=== PATIENT | male | born 1955 | race Caucasian/White ===

== ENCOUNTER 2019-12-28 22:49 | Outpatient (REF) | payer BC, SELFPAY ==
[2020-01-01 00:05] LABS: Patient Race White; SARS-CoV-2 RNA Undetected (Undetected); SARS-CoV-2 Specimen Source Nasal
== END 2019-12-28 23:09 ==
LOC: LBN 22:49
PROVIDERS: PCP Family Medicine; Visit Provider Nurse Practitioner Family
DX: Z20.828 Contact with and (suspected) exposure to other viral communicable diseases (principal)
CPT/HCPCS: U0003

== ENCOUNTER 2020-02-24 10:19 | Outpatient (REF) | payer BC, SELFPAY | END 2020-02-24 10:39 | LOC: NCHCN 10:19 | PROVIDERS: PCP Family Medicine; Visit Provider Internal Medicine | DX: R30.0 Dysuria (principal) | CPT/HCPCS: 87086 ==

== ENCOUNTER 2021-06-11 14:47 | Outpatient (REF) | payer BC, SELFPAY ==
[2021-06-11 16:57] LABS: COMMENT (LAB VIEW ONLY) 37.23 mg/dL; Microalb ug/mg Crea 61.5 ug/mg Cr
[2021-06-11 17:01] LABS: PROTEIN < 6.0 mg/dL (0.0-11.9)
[2021-06-11 17:09] LABS: Hemoglobin A1C 5.9 % (<5.7)
[2021-06-11 18:01] LABS: ALT 23 U/L (16-63); AST 24 U/L (15-37); Albumin 3.8 g/dL (3.4-5.0); Alkaline Phosphatase 78 U/L (46-116); Anion Gap 10.1 mmol/L (3-11); BUN 17 mg/dL (7-18); Bilirubin, Total 0.4 mg/dL (0.2-1.0); CO2 25.9 mmol/L (21.0-32.0); Calcium 9.2 mg/dL (8.5-10.1); Calculated LDL 126 mg/dL (<100); Chloride 103 mmol/L (98-107); Cholesterol 214 mg/dL (<200); Glucose 91 mg/dL (74-106); HDL Cholesterol 43 mg/dL (40-60); Potassium 4.5 mmol/L (3.5-5.1); Sodium 139 mmol/L (136-145); Total Protein 7.4 g/dL (6.4-8.2); Triglyceride 228 mg/dL (<150)
[2021-06-11 18:22] LABS: TSH (W/Ref FT4) 1.56 uIU/mL (0.36-3.74)
== END 2021-06-11 14:48 | disposition home or self-care (01) ==
LOC: NCHCN 14:47
PROVIDERS: PCP Family Medicine; Visit Provider Nurse Practitioner Family
DX: R73.9 Hyperglycemia, unspecified (principal); R60.9 Edema, unspecified
CPT/HCPCS: 80053; 80061; 82043; 82570; 83036; 84156; 84443